=== PATIENT | female | born 1965 | race Caucasian/White ===

== ENCOUNTER 2025-02-26 05:06 | Inpatient (IN) ==
[2025-02-26] MEDS ORDERED: IOPAMIDOL 100 ML BOTTLE IV ONE (05:07)
[2025-02-26] MEDS: 0.9 % SODIUM CHLORIDE 1,000 ML IV ONE (05:59)
[2025-02-26] MEDS: ACETAMINOPHEN 1,000 MG/100 ML BAG IV ONE (05:59)
[2025-02-26 06:02] LABS: Basophils # (Auto) 0.03 K/mcL (0.00-0.30); Basophils % (Auto) 0.2 % (0.0-2.0); Eosinophils # (Auto) 0 K/mcL (0.00-0.70); Eosinophils % (Auto) 0 % (0.0-7.0); Hematocrit 48.1 % (34.1-44.9); Hemoglobin 16.5 g/dL (11.2-15.7); Lymphocytes # (Auto) 1.56 K/mcL (1.50-4.80); Lymphocytes % (Auto) 8.1 % (15.5-49.0); Mean Cell Volume 86.2 fL (80.0-100.0); Mean Corpuscular HGB Conc 34.3 g/dL (31.0-36.0); Mean Platelet Volume 10.4 fL (8.8-12.5); Monocytes # (Auto) 0.51 K/mcL (0.10-0.90); Monocytes % (Auto) 2.7 % (1.0-12.0); Neutrophils % (Auto) 88.8 % (38.0-78.0); Platelet Count 303 K/mcL (140-440); RBC 5.58 M/mcL (3.59-5.38); Red Cell Distribution Width 12.7 % (11.5-14.5); WBC 19.2 K/mcL (4.5-11.0)
[2025-02-26 06:15] LABS: ALT/SGPT 40 U/L (<40); AST/SGOT 35 U/L (<32); Albumin 4.6 gm/dL (3.2-5.2); Albumin/Globulin Ratio 1.4 (1.0-2.3); Alkaline Phosphatase 77 U/L (39-117); Bilirubin,Total 0.7 mg/dL (0.1-1.0); Blood Urea Nitrogen 18 mg/dL (6-20); Calcium 9.8 mg/dL (8.6-10.4); Carbon Dioxide 27 mmol/L (22-30); Chloride 95 mmol/L (96-108); Globulin 3.2 gm/dL (2.2-3.7); Glomerular Filtration Rate 70; Glucose 187 mg/dL (70-105); Potassium 3.4 mmol/L (3.3-5.1); Sodium 138 mmol/L (133-145)
[2025-02-26 06:59] LABS: Appearance,Urine Turbid (Clear); Bilirubin,Urine Negative (Negative); Color,Urine Yellow; Glucose,Urine (UA) Negative (Negative); Ketones,Urine 40 mg/dL (Negative); Leukocyte Esterase,Urine Negative /uL (Negative); Nitrate,Urine Negative (Negative); PH,Urine >= 9.0 (5.0-9.0); Protein,Urine 100 mg/dL (Negative); Urine Amorphous Crystals Many /hpf; Urine Blood Negative ery/mcL (Negative); Urine Granular Cast 1 /lph (0-0); Urine RBC 0 /hpf (0-3); Urine Squamous Epithelial Cell 0 /hpf (0-4); Urine WBC 0 /hpf (0-4); Urobilinogen,Urine Normal
[2025-02-26] MEDS ORDERED: ACETAMINOPHEN 500 MG/50 ML BAG IV PRN (08:06)
[2025-02-26] MEDS ORDERED: ONDANSETRON 4 MG/2 ML VIAL IV PRN (08:06)
[2025-02-26] MEDS ORDERED: HYDROmorphone 0.5 MG/0.5 ML SYRINGE IV PRN (08:06)
[2025-02-26] MEDS: 0.9 % SODIUM CHLORIDE 1,000 ML IV SCH (08:53)
[2025-02-26] MEDS: cefTRIAXone 2 GM in DEXTROSE 5% IN WATER 50 ML IV SCH (15:19)
[2025-02-26] MEDS: cefTRIAXone 2 GM VIAL IM SCH (15:23)
[2025-02-26] MEDS: cefTRIAXone 2 GM VIAL IV SCH (15:23)
[2025-02-26] MEDS: metroNIDAZOLE 500 MG/100 ML BAG IV SCH (15:55)
[2025-02-26] MEDS: PANTOPRAZOLE 40 MG VIAL IV SCH (16:44)
[2025-02-26] MEDS: PYRIDOSTIGMINE BROMIDE 10 MG/2 ML AMPUL IV SCH (16:45)
[2025-02-26] MEDS: METOCLOPRAMIDE 10 MG/2 ML VIAL IV SCH (18:04)
[2025-02-27 08:44] LABS: Basophils # (Auto) 0.04 K/mcL (0.00-0.30); Basophils % (Auto) 0.3 % (0.0-2.0); Eosinophils # (Auto) 0.04 K/mcL (0.00-0.70); Eosinophils % (Auto) 0.3 % (0.0-7.0); Hematocrit 41.9 % (34.1-44.9); Lymphocytes # (Auto) 1.96 K/mcL (1.50-4.80); Mean Corpuscular HGB Conc 33.4 g/dL (31.0-36.0); Mean Platelet Volume 11.1 fL (8.8-12.5); Monocytes % (Auto) 6.9 % (1.0-12.0); Neutrophils % (Auto) 77.3 % (38.0-78.0); Platelet Count 233 K/mcL (140-440); RBC 4.71 M/mcL (3.59-5.38); WBC 13.1 K/mcL (4.5-11.0)
[2025-02-27] MEDS ORDERED: PHENYLEPHRINE NAS PRN (14:57)
[2025-02-27] MEDS: POLYETHYLENE GLYCOL 3350 17 GM PACKET PO SCH (15:39)
[2025-02-28 06:08] LABS: Erythrocyte Sedimentation Rate 11 mm/hr (0-30)
[2025-02-28 06:14] LABS: Basophils # (Auto) 0.05 K/mcL (0.00-0.30); Basophils % (Auto) 0.5 % (0.0-2.0); Eosinophils # (Auto) 0.26 K/mcL (0.00-0.70); Eosinophils % (Auto) 2.4 % (0.0-7.0); Hematocrit 39.3 % (34.1-44.9); Hemoglobin 13.2 g/dL (11.2-15.7); Lymphocytes # (Auto) 1.64 K/mcL (1.50-4.80); Lymphocytes % (Auto) 15.1 % (15.5-49.0); Mean Cell Volume 88.7 fL (80.0-100.0); Mean Corpuscular HGB Conc 33.6 g/dL (31.0-36.0); Mean Platelet Volume 10.3 fL (8.8-12.5); Monocytes # (Auto) 0.89 K/mcL (0.10-0.90); Monocytes % (Auto) 8.2 % (1.0-12.0); Neutrophils % (Auto) 73.7 % (38.0-78.0); Platelet Count 201 K/mcL (140-440); RBC 4.43 M/mcL (3.59-5.38); WBC 10.8 K/mcL (4.5-11.0)
[2025-02-28] MEDS: POLYETHYLENE GLYCOL 3350 17 GM PACKET PO SCH (21:21)
[2025-03-01 15:14] VITALS: TEMP 98.4; O2SAT 99
== END 2025-03-01 14:52 | disposition home or self-care (01) | DRG 390 ==
LOC: ED 05:06 → MEDSUR 10:09
PROVIDERS: ADMIT Family Medicine Adult Medicine; ATTEND Family Medicine Adult Medicine